=== PATIENT | male | born 1945 | race African-American/Black ===

== ENCOUNTER 2019-03-02 07:19 | Inpatient (IN) | payer MEDICARE ==
[~2019-03-02] VITALS: Ht 175.3 cm; Wt 59.1 kg
[2019-03-02 06:45] VITALS: BP 111/72
[2019-03-02] MEDS ORDERED: METHYL SALICYLATE/MENTHOL TOPICAL OINTMENT 29GM TUBE. TP PRN (07:30)
[2019-03-02] MEDS ORDERED: ACETAMINOPHEN 325 MG TABLET PO PRN (07:30)
[2019-03-02] MEDS ORDERED: MAG HYDROX/AL HYDROX/SIMETH 30 ML ORAL.SUSP PO PRN (07:30)
[2019-03-02] MEDS ORDERED: MAGNESIUM HYDROXIDE 2,400 MG/30 ML ORAL.SUSP. PO PRN (07:30)
[2019-03-02 08:13] LABS: BILIRUBIN,URINE NEG (NEG); CLARITY,URINE CLEAR; COLOR,URINE YELLOW; GLUCOSE,URINE NEG (NEG); UROBILINOGEN,URINE 0.2 mg/dL (0.2 mg/dL)
[2019-03-02 08:14] LABS: BACTERIA,URINE 0 /HPF (0-FEW); NITRITE,URINE NEG (NEG); RBC,URINE 0 /HPF (0-2); SQUAMOUS EPITHELIAL CELL,UR OCC /LPF; WBC,URINE RARE /HPF (0-4)
[2019-03-02] MEDS ORDERED: APIX5TAB3 PO (10:09)
[2019-03-02] MEDS ORDERED: ATOR20TA58 PO (10:13)
[2019-03-02] MEDS ORDERED: ASPI-612 PO (10:13)
[2019-03-02] MEDS ORDERED: CARB1TAB2 PO (10:13)
[2019-03-02] MEDS ORDERED: FUROSEMIDE 20 MG TABLET PO PRN (10:15)
[2019-03-02] MEDS ORDERED: MIDO10TA PO (10:39)
[2019-03-02] MEDS ORDERED: ENTA200T2 PO (10:39)
[2019-03-02] MEDS ORDERED: INSU100V13 SQ (10:39)
[2019-03-02] MEDS ORDERED: INSU100I17 SQ (10:39)
[2019-03-02] MEDS ORDERED: QUET25TA5 PO (10:39)
[2019-03-02] MEDS ORDERED: CYCL25CA9 PO (10:39)
[2019-03-02] MEDS ORDERED: FLUT50DI IH (10:39)
[2019-03-02] MEDS ORDERED: FURO20TA3 PO (10:39)
[2019-03-02] MEDS ORDERED: MYCO500T3 PO (10:39)
[2019-03-02] MEDS ORDERED: CARB1TAB48 PO (10:39)
[2019-03-02] MEDS ORDERED: ROPI3TAB4 PO (10:39)
[2019-03-02] MEDS ORDERED: OMEP20TA8 PO (10:39)
[2019-03-02] MEDS ORDERED: [UNRECOGNIZED DRUG - CODE] OU (10:39)
[2019-03-02] MEDS ORDERED: TUBE5VIA12 ID (10:39)
[2019-03-02] MEDS ORDERED: PRED2.5T PO (10:39)
[2019-03-02 12:29] VITALS: BP 102/66
[2019-03-02] MEDS: CARBIDOPA/LEVODOPA 25/100MG TABLET PO SCH ×3 (12:45→19:48)
[2019-03-02] MEDS: rOPINIRole 1 MG TABLET. PO SCH ×2 (12:45→19:27)
[2019-03-02] MEDS: MIDODRINE 5 MG TABLET PO SCH ×2 (12:46→17:27)
[2019-03-02] MEDS: HEPARIN for SUB-Q USE 5,000 UNIT/ML VIAL. SQ SCH ×2 (12:46→13:03)
[2019-03-02] MEDS: INSULIN LISPRO 300 UNITS/3 ML INSULN.PEN. SQ SCH ×2 (12:47→17:34)
[2019-03-02] MEDS: ENTACAPONE 200 MG TABLET PO SCH ×3 (13:00→19:28)
[2019-03-02 16:32] VITALS: BP 129/67
[2019-03-02] MEDS: [UNRECOGNIZED DRUG - OTHER] PO SCH (19:28)
[2019-03-02] MEDS: MYCOPHENOLATE MOFETIL 500 MG TABLET. PO SCH (19:29)
[2019-03-02] MEDS: QUEtiapine 25 MG TABLET. PO SCH (19:48)
[2019-03-02] MEDS: APIXABAN 5 MG TABLET. PO SCH (19:48)
[2019-03-02] MEDS: ATORVASTATIN CALCIUM 20 MG TABLET PO SCH (19:48)
--- NOTE | 2019-03-02 20:23 | RAD ---
RS Compliance Statement: One or more of the following individualized dose reduction techniques were utilized for this examination: 1. Automated exposure control 2. Adjustment of the mA and/or kV according to patient size 3. Use of iterative reconstruction technique CT head without contrast 03/02/2019 6:53 PM INDICATION: Recent altered mental status. Confusion and dizziness COMPARISON: None available TECHNIQUE: Multiple axial CT images of the head were obtained from skull base through the vertex without intravenous contrast. FINDINGS: Head: Ventricles, sulci and basal cisterns are prominent compatible with mild generalized cerebral volume loss. There is no hydrocephalus. Winn-white matter differentiation is normal. There is no acute intracranial hemorrhage. There is no mass, mass effect or midline shift. Posterior fossa is normal in appearance. Visualized portions of the orbits are normal. Paranasal sinuses are well aerated. Mastoid air cells are well aerated. Scalp and calvaria are normal. IMPRESSION: No acute intracranial hemorrhage. Mild generalized cerebral volume loss. Electronically signed by: Shazia Carvalho MD (03/02/2019 8:20 PM) [facility]
[2019-03-02] MEDS ORDERED: INSULIN GLARGINE 300 UNITS/3 ML INSULN.PEN. SQ SCH (21:00)
[2019-03-02] MEDS ORDERED: NON FORMULARY ITEM (Fluticasone Propionate (Flovent 50MCG Diskus) 50 MCG) IH SCH (21:00)
[2019-03-02] MEDS: BUDESONIDE 0.5 MG/2 ML NEBU NEB SCH (21:00)
[2019-03-02] MEDS: TETRAHYDROZOLINE 0.05% OPHTH SOLUTION 15ML BOTTLE. OU SCH (21:49)
--- NOTE | 2019-03-02 22:39 | PDOC ---
Exam Note: Ilir Note: Please also refer to the separate dictated note~for this date of service dictated separately. Discussed the patient with Nursing staff reviewed the chart.~Reviewed interim history and current functioning. Reviewed vital signs,~Labs/ Radiology~and current medications noted below. Continue current treatment with the changes noted in the dictated addendum note Assessment: Vital Signs/I&O: Vital Signs Date Time Temp Pulse Resp B/P (MAP) Pulse Ox O2 Delivery O2 Flow Rate FiO2 03/02/19 21:00 100 Room Air 03/02/19 17:27 85 129/67 03/02/19 16:32 98.6 20 Labs: Laboratory Tests Test 03/02/19 07:40 03/02/19 09:16 03/02/19 12:15 03/02/19 17:14 Urine Collection Type Clean catch Urine Color Yellow Urine Clarity Clear Urine pH 7.0 Urine Specific Pinson 1.015 Urine Protein Neg (NEG-TRACE) Urine Glucose (UA) Neg mg/dL (NEG) Urine Ketones (Stick) Neg mg/dL (NEG) Urine Blood Neg (NEG) Urine Nitrite Neg (NEG) Urine Bilirubin Neg (NEG) Urine Urobilinogen Dipstick 0.2 mg/dL (0.2 mg/dL) Urine Leukocyte Esterase Neg (NEG) Urine RBC 0 /HPF (0-2) Urine WBC Rare /HPF (0-4) Urine Squamous Epithelial Cells Occ /LPF Urine Bacteria 0 /HPF (0-FEW) Glucose (Fingerstick) 73 mg/dL (70-99) 128 mg/dL (70-99) H 231 mg/dL (70-99) H Test 03/02/19 19:32 Glucose (Fingerstick) 241 mg/dL (70-99) H Current Medications: Meds: Current Medications Medications (Trade) Dose Ordered Sig/Yana Route PRN Reason Start Time Stop Time Status Last Admin Dose Admin Atorvastatin Calcium (Lipitor) 20 mg QHS PO 03/02/19 21:00 03/02/19 19:48 Carbidopa/Levodopa (Sinemet 25/100) 1 tab QHS PO 03/02/19 21:00 03/02/19 19:48 Mycophenolate Mofetil (Cellcept) 500 mg BID PO 03/02/19 21:00 03/02/19 19:29 Apixaban (Eliquis) 5 mg BID PO 03/02/19 21:00 03/02/19 19:48 Carbidopa/Levodopa (Sinemet 25/100) 1 tab TIDWMEALS PO 03/02/19 12:00 03/02/19 17:27 Cyclosporine (Neoral) 75 mg BID PO 03/02/19 21:00 03/02/19 19:28 Entacapone (Comtan) 200 mg QID PO 03/02/19 13:00 03/02/19 19:28 Insulin Human Lispro (HumaLOG) 5 units TIDWMEALS SQ 03/02/19 12:00 03/02/19 17:34 Insulin Glargine (Lantus) 15 units QHS SQ 03/02/19 21:00 03/02/19 21:43 Midodrine (Proamatine) 10 mg [id number] PO 03/02/19 13:00 03/02/19 17:27 Tetrahydrozoline HCl (Murine) 1 drop BID OU 03/02/19 21:00 03/02/19 21:49 Quetiapine Fumarate (SEROquel) 25 mg QHS PO 03/02/19 21:00 03/02/19 19:48 Ropinirole HCl (Requip) 3 mg TID PO 03/02/19 14:00 03/02/19 19:27 Budesonide (Pulmicort) 0.5 mg QHS NEB 03/02/19 21:00 03/02/19 21:00 Olanzapine (ZyPREXA ZYDIS) 2.5 mg PRN Q2HR PRN PO PSYCHOSIS 03/02/19 15:30 03/02/19 15:44 I have reviewed the current psychotropics carefully including drug interactions. Risk benefit ratio favors no change other than as noted in my dictated progress note. Diagnosis: Problems: (1) Anxiety disorder (2) Dementia in Alzheimer's disease with delusions (3) Dementia in Alzheimer's disease with depression (4) Dementia, vascular, with delusions (5) Dementia, vascular, with depression (6) Impulse control disorder ROSEMARY ZUIRTA MD Mar 02, 2019 22:39
[2019-03-03 05:52] VITALS: BP 112/74
[2019-03-03] MEDS: MIDODRINE 5 MG TABLET PO SCH ×3 (06:02→17:03)
[2019-03-03 06:54] LABS: BASO % 1 % (0-3); EOS # 0.1 x10^3/uL (0.0-0.7); EOS % 2 % (0-3); HEMOGLOBIN 14.3 g/dL (13.0-17.5); LYMPH # 2.2 x10^3/uL (1.0-4.8); LYMPH % 53 % (24-48); MEAN CORPUSCULAR HEMOGLOBIN 34 pg (25-35); MEAN CORPUSCULAR HGB CONC 33 g/dL (31-37); MEAN CORPUSCULAR VOLUME 106 fL (79-100); MONO # 0.5 x10^3/uL (0.0-1.1); MONO % 13 % (0-9); NEUT # 1.3 x10^3uL (1.8-7.7); NEUT % 33 % (31-73); PLATELET COUNT 205 x10^3/uL (140-400); RED BLOOD COUNT 4.17 x10^6/uL (4.30-5.70); RED CELL DISTRIBUTION WIDTH 15.2 % (11.5-14.5); WHITE BLOOD COUNT 4.1 x10^3/uL (4.0-11.0)
[2019-03-03 07:12] LABS: ALBUMIN 3.7 g/dL (3.4-5.0); ALBUMIN/GLOBULIN RATIO 1.1 (1.0-1.7); CALCIUM 9.5 mg/dL (8.5-10.1); CREATININE 1.2 mg/dL (0.7-1.3); GFR 71.6; MAGNESIUM 1.8 mg/dL (1.8-2.4); TOTAL BILIRUBIN 1.1 mg/dL (0.2-1.0); TOTAL PROTEIN 7.2 g/dL (6.4-8.2)
[2019-03-03 07:45] LABS: BURR CELLS OCC; PLT ESTIMATE ADEQUATE (ADEQUATE)
[2019-03-03] MEDS: CARBIDOPA/LEVODOPA 25/100MG TABLET PO SCH ×4 (07:57→19:08)
[2019-03-03] MEDS: MYCOPHENOLATE MOFETIL 500 MG TABLET. PO SCH ×2 (07:58→19:10)
[2019-03-03] MEDS: [UNRECOGNIZED DRUG - OTHER] PO SCH ×2 (07:58→19:09)
[2019-03-03] MEDS: APIXABAN 5 MG TABLET. PO SCH ×2 (07:58→19:08)
[2019-03-03] MEDS: TETRAHYDROZOLINE 0.05% OPHTH SOLUTION 15ML BOTTLE. OU SCH ×2 (07:59→21:47)
[2019-03-03] MEDS: rOPINIRole 1 MG TABLET. PO SCH ×3 (07:59→19:08)
[2019-03-03] MEDS: ENTACAPONE 200 MG TABLET PO SCH ×4 (07:59→19:08)
[2019-03-03] MEDS: ASPIRIN ENTERIC COATED 81 MG TABLET.DR. PO SCH (08:01)
[2019-03-03] MEDS: PANTOPRAZOLE 40 MG TABLET. PO SCH (08:01)
[2019-03-03] MEDS: predniSONE 5 MG TABLET PO SCH (08:02)
[2019-03-03] MEDS: INSULIN LISPRO 300 UNITS/3 ML INSULN.PEN. SQ SCH ×3 (08:04→16:53)
[2019-03-03] MEDS ORDERED: TUBERCULIN PURIF PROT DERIV ID SCH (09:00)
[2019-03-03 12:51] LABS: THYROID STIM HORMONE (TSH) 7.36 uIU/mL (0.358-3.740)
[2019-03-03 15:54] VITALS: BP 125/82
[2019-03-03] MEDS: CHOLECALCIFEROL (VITAMIN D3) 50,000 UNIT CAPSULE PO SCH (17:21)
[2019-03-03] MEDS: QUEtiapine 25 MG TABLET. PO SCH (19:08)
[2019-03-03] MEDS: ATORVASTATIN CALCIUM 20 MG TABLET PO SCH (19:09)
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
[2019-03-03] MEDS ORDERED: INSULIN GLARGINE 300 UNITS/3 ML INSULN.PEN. SQ SCH (21:00)
[2019-03-03 21:10] LABS: THYROXINE 5.7 ug/dL (4.5-12.0)
--- NOTE | 2019-03-03 22:36 | PDOC ---
Exam Note: Ilir Note: Please also refer to the separate dictated note~for this date of service dictated separately.~Patient seen individually. Discussed the patient with Nursing staff reviewed the chart.~Reviewed interim history and current functioning. Reviewed vital signs,~Labs/ Radiology~and current medications noted below. Continue current treatment with the changes noted in the dictated addendum note Assessment: Vital Signs/I&O: Vital Signs Date Time Temp Pulse Resp B/P (MAP) Pulse Ox O2 Delivery O2 Flow Rate FiO2 03/03/19 17:03 85 125/82 03/03/19 15:54 97.6 17 96 03/02/19 21:00 Room Air I & O 03/02/19 03/02/19 03/03/19 14:59 22:59 06:59 Intake Total 720 ml 60 ml 120 ml Balance 720 ml 60 ml 120 ml Labs: Laboratory Tests Test 03/03/19 06:17 03/03/19 07:30 03/03/19 11:45 03/03/19 16:45 White Blood Count 4.1 x10^3/uL (4.0-11.0) Red Blood Count 4.17 x10^6/uL (4.30-5.70) L Hemoglobin 14.3 g/dL (13.0-17.5) Hematocrit 44.0 % (39.0-53.0) Mean Corpuscular Volume 106 fL (79-100) H Mean Corpuscular Hemoglobin 34 pg (25-35) Mean Corpuscular Hemoglobin Concent 33 g/dL (31-37) Red Cell Distribution Width 15.2 % (11.5-14.5) H Platelet Count 205 x10^3/uL (140-400) Neutrophils (%) (Auto) 33 % (31-73) Lymphocytes (%) (Auto) 53 % (24-48) H Monocytes (%) (Auto) 13 % (0-9) H Eosinophils (%) (Auto) 2 % (0-3) Basophils (%) (Auto) 1 % (0-3) Neutrophils # (Auto) 1.3 x10^3uL (1.8-7.7) L Lymphocytes # (Auto) 2.2 x10^3/uL (1.0-4.8) Monocytes # (Auto) 0.5 x10^3/uL (0.0-1.1) Eosinophils # (Auto) 0.1 x10^3/uL (0.0-0.7) Basophils # (Auto) 0.0 x10^3/uL (0.0-0.2) Platelet Estimate Adequate (ADEQUATE) Macrocytosis Present [place] Cells Occ Crenated Cell Present Sodium Level 141 mmol/L (136-145) Potassium Level 4.0 mmol/L (3.5-5.1) Chloride Level 104 mmol/L (98-107) Carbon Dioxide Level 30 mmol/L (21-32) Anion Gap 7 (6-14) Blood Urea Nitrogen 25 mg/dL (8-26) Creatinine 1.2 mg/dL (0.7-1.3) Estimated GFR (Cockcroft-Gault) 71.6 BUN/Creatinine Ratio 21 (6-20) H Glucose Level 238 mg/dL (70-99) H Calcium Level 9.5 mg/dL (8.5-10.1) Magnesium Level 1.8 mg/dL (1.8-2.4) Iron Level 50 ug/dL (65-175) L Total Iron Binding Capacity 232 ug/dL (250-450) L Iron Saturation 22 % (15-34) Total Bilirubin 1.1 mg/dL (0.2-1.0) H Aspartate Amino Transferase (AST) 20 U/L (15-37) Alanine Aminotransferase (ALT) 14 U/L (16-63) L Alkaline Phosphatase 110 U/L (46-116) Total Protein 7.2 g/dL (6.4-8.2) Albumin 3.7 g/dL (3.4-5.0) Albumin/Globulin Ratio 1.1 (1.0-1.7) Triglycerides Level 110 mg/dL (0-150) Cholesterol Level 179 mg/dL (0-200) LDL Cholesterol, Calculated 96 mg/dL (0-100) VLDL Cholesterol, Calculated 22 mg/dL (0-40) Non-HDL Cholesterol Calculated 118 mg/dL (0-129) HDL Cholesterol 61 mg/dL (40-60) H Cholesterol/HDL Ratio 2.0 25-Hydroxy Vitamin D Total 27.8 ng/mL (30-100) L Thyroid Stimulating Hormone (TSH) 7.360 uIU/mL (0.358-3.740) Thyroxine (T4) 5.7 ug/dL (4.5-12.0) Total Triiodothyronine (TT3) 106 ng/dL (71-180) Treponema pallidum Antibody Nonreactive (Nonreactive) Glucose (Fingerstick) 227 mg/dL (70-99) H 327 mg/dL (70-99) H 376 mg/dL (70-99) H Test 03/03/19 19:06 03/03/19 20:49 Glucose (Fingerstick) 369 mg/dL (70-99) H 303 mg/dL (70-99) H Current Medications: Meds: Current Medications Medications (Trade) Dose Ordered Sig/Yana Route PRN Reason Start Time Stop Time Status Last Admin Dose Admin Aspirin (Aspirin Enteric Coated) 81 mg DAILY PO 03/03/19 09:00 03/03/19 08:01 Pantoprazole Sodium (Protonix) 40 mg DAILY PO 03/03/19 09:00 03/03/19 08:01 Prednisone (Prednisone) 7.5 mg DAILY PO 03/03/19 09:00 03/03/19 08:02 Vitamin D (Vitamin D3) 50,000 unit WEEKLY PO 03/03/19 17:15 03/03/19 17:21 Insulin Glargine (Lantus) 18 units QHS SQ 03/03/19 21:00 03/03/19 19:27 I have reviewed the current psychotropics carefully including drug interactions. Risk benefit ratio favors no change other than as noted in my dictated progress note. Diagnosis: Problems: (1) Anxiety disorder (2) Dementia in Alzheimer's disease with delusions (3) Dementia in Alzheimer's disease with depression (4) Dementia, vascular, with delusions (5) Dementia, vascular, with depression (6) Impulse control disorder ROSEMARY ZURITA MD Mar 03, 2019 22:36
[2019-03-03] MEDS: BUDESONIDE 0.5 MG/2 ML NEBU NEB SCH (22:39)
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
[2019-03-04 01:10] LABS: HEMOGLOBIN A1C 7.8 % (4.8-5.6)
[2019-03-04 05:35] VITALS: BP 145/89
[2019-03-04] MEDS: MIDODRINE 5 MG TABLET PO SCH ×3 (06:00→17:22)
[2019-03-04] MEDS: ASPIRIN ENTERIC COATED 81 MG TABLET.DR. PO SCH (07:49)
[2019-03-04] MEDS: CARBIDOPA/LEVODOPA 25/100MG TABLET PO SCH ×4 (07:49→20:11)
[2019-03-04] MEDS: TETRAHYDROZOLINE 0.05% OPHTH SOLUTION 15ML BOTTLE. OU SCH ×2 (07:49→20:13)
[2019-03-04] MEDS: ENTACAPONE 200 MG TABLET PO SCH ×4 (07:50→20:14)
[2019-03-04] MEDS: APIXABAN 5 MG TABLET. PO SCH ×2 (07:50→20:11)
[2019-03-04] MEDS: MYCOPHENOLATE MOFETIL 500 MG TABLET. PO SCH ×2 (07:50→20:12)
[2019-03-04] MEDS: [UNRECOGNIZED DRUG - OTHER] PO SCH ×2 (07:51→20:12)
[2019-03-04] MEDS: predniSONE 5 MG TABLET PO SCH (07:52)
[2019-03-04] MEDS: PANTOPRAZOLE 40 MG TABLET. PO SCH (07:52)
[2019-03-04] MEDS: rOPINIRole 1 MG TABLET. PO SCH ×3 (07:53→20:12)
[2019-03-04] MEDS: INSULIN LISPRO 300 UNITS/3 ML INSULN.PEN. SQ SCH ×3 (07:54→17:36)
[2019-03-04] MEDS: SERTRALINE 25 MG TABLET. PO SCH (08:05)
[2019-03-04 15:54] VITALS: BP 116/76
[2019-03-04] MEDS: ATORVASTATIN CALCIUM 20 MG TABLET PO SCH (20:11)
[2019-03-04] MEDS: QUEtiapine 25 MG TABLET. PO SCH (20:12)
[2019-03-04 20:46] LABS: THYROXINE 5.5 ug/dL (4.5-12.0)
[2019-03-04] MEDS ORDERED: INSULIN GLARGINE 300 UNITS/3 ML INSULN.PEN. SQ SCH (21:00)
--- NOTE | 2019-03-04 21:18 | PN ---
DATE: 03/03/2019 PSYCHIATRIC PROGRESS NOTE This is a late entry 03/03/2019, covers the elements not covered in my initial note. SUBJECTIVE: I met with the patient in the evening. The patient slept 6-3/4 hours previous night. He states he slept "like a rock." He is compliant with his medications. Received Zyprexa the day before for anxiety and paranoia. Appetite is fair. REVIEW OF SYSTEMS: Ambulation impaired with walker. No CV, , pulmonary, eye, ENT system symptoms on review. He is pleasant, verbal, smiling as I met with him. MENTAL STATUS EXAM: Oriented to himself. Insight, judgment, recent and remote memory, attention, concentration, fund of knowledge poor, consistent with his diagnosis. IMPRESSION: Major neurocognitive disorder, Alzheimer, vascular with delusion, depression; anxiety disorder, unspecified; Parkinson's disease, status post heart transplant. PLAN: Start Zoloft 25 mg a day for his mood and anxiety symptoms. Maintain Seroquel 25 mg p.o. at bedtime. Rest unchanged for now. MAN Mallorie ZURITA MD DR: KOBY/candido JOB#: [id number] / [id number]
[2019-03-04] MEDS: BUDESONIDE 0.5 MG/2 ML NEBU NEB SCH (21:41)
--- NOTE | 2019-03-04 22:16 | PDOC ---
Exam Note: Ilir Note: Please also refer to the separate dictated note~for this date of service dictated separately.~Patient seen individually. Discussed the patient with Nursing staff reviewed the chart.~Reviewed interim history and current functioning. Reviewed vital signs,~Labs/ Radiology~and current medications noted below. Continue current treatment with the changes noted in the dictated addendum note Assessment: Vital Signs/I&O: Vital Signs Date Time Temp Pulse Resp B/P (MAP) Pulse Ox O2 Delivery O2 Flow Rate FiO2 03/04/19 21:41 99 Room Air 03/04/19 17:22 75 152/70 03/04/19 15:54 97.4 16 I & O 03/03/19 03/03/19 03/04/19 14:59 22:59 06:59 Intake Total 600 ml 720 ml Balance 600 ml 720 ml Labs: Laboratory Tests Test 03/04/19 07:14 03/04/19 07:18 03/04/19 11:50 03/04/19 16:44 Free Thyroxine 1.01 ng/dL (0.76-1.46) Thyroxine (T4) 5.5 ug/dL (4.5-12.0) Total Triiodothyronine (TT3) 110 ng/dL (71-180) Glucose (Fingerstick) 256 mg/dL (70-99) H 388 mg/dL (70-99) H 479 mg/dL (70-99) H Test 03/04/19 19:04 03/04/19 20:24 Glucose (Fingerstick) 476 mg/dL (70-99) H 461 mg/dL (70-99) H Current Medications: Meds: Current Medications Medications (Trade) Dose Ordered Sig/Yana Route PRN Reason Start Time Stop Time Status Last Admin Dose Admin Sertraline HCl (Zoloft) 25 mg DAILY PO 03/04/19 09:00 03/04/19 08:05 Insulin Human Lispro (HumaLOG) 7 units TIDWMEALS SQ 03/04/19 08:00 03/04/19 17:27 DC 03/04/19 12:05 Insulin Glargine (Lantus) 25 units QHS SQ 03/04/19 21:00 03/04/19 20:18 Insulin Human Lispro (HumaLOG) 10 units TIDWMEALS SQ 03/04/19 17:30 03/04/19 17:36 I have reviewed the current psychotropics carefully including drug interactions. Risk benefit ratio favors no change other than as noted in my dictated progress note. Diagnosis: Problems: (1) Anxiety disorder (2) Dementia in Alzheimer's disease with delusions (3) Dementia in Alzheimer's disease with depression (4) Dementia, vascular, with delusions (5) Dementia, vascular, with depression (6) Impulse control disorder ROSEMARY ZURITA MD Mar 04, 2019 22:16
[2019-03-05] MEDS: MIDODRINE 5 MG TABLET PO SCH ×3 (04:47→17:13)
[2019-03-05 06:34] VITALS: BP 122/69
[2019-03-05] MEDS: APIXABAN 5 MG TABLET. PO SCH ×2 (08:31→19:30)
[2019-03-05] MEDS: ASPIRIN ENTERIC COATED 81 MG TABLET.DR. PO SCH (08:31)
[2019-03-05] MEDS: rOPINIRole 1 MG TABLET. PO SCH ×3 (08:31→19:31)
[2019-03-05] MEDS: ENTACAPONE 200 MG TABLET PO SCH ×4 (08:31→19:31)
[2019-03-05] MEDS: predniSONE 5 MG TABLET PO SCH (08:32)
[2019-03-05] MEDS: PANTOPRAZOLE 40 MG TABLET. PO SCH (08:34)
[2019-03-05] MEDS: CARBIDOPA/LEVODOPA 25/100MG TABLET PO SCH ×4 (08:34→19:31)
[2019-03-05] MEDS: TETRAHYDROZOLINE 0.05% OPHTH SOLUTION 15ML BOTTLE. OU SCH ×2 (08:34→19:31)
[2019-03-05] MEDS: SERTRALINE 25 MG TABLET. PO SCH (08:34)
[2019-03-05] MEDS: INSULIN LISPRO 300 UNITS/3 ML INSULN.PEN. SQ SCH ×3 (08:35→17:16)
[2019-03-05] MEDS: MYCOPHENOLATE MOFETIL 500 MG TABLET. PO SCH ×2 (08:38→19:31)
[2019-03-05] MEDS: [UNRECOGNIZED DRUG - OTHER] PO SCH ×2 (08:38→19:31)
[2019-03-05 12:32] VITALS: BP 101/63
[2019-03-05 15:39] VITALS: BP 109/71
[2019-03-05] MEDS: ATORVASTATIN CALCIUM 20 MG TABLET PO SCH (19:30)
[2019-03-05] MEDS: QUEtiapine 25 MG TABLET. PO SCH (19:31)
[2019-03-05] MEDS: INSULIN GLARGINE 300 UNITS/3 ML INSULN.PEN. SQ SCH (19:48)
[2019-03-05] MEDS: BUDESONIDE 0.5 MG/2 ML NEBU NEB SCH (21:08)
--- NOTE | 2019-03-05 22:23 | PDOC ---
Exam Note: Ilir Note: Please also refer to the separate dictated note~for this date of service dictated separately.~Patient seen individually. Discussed the patient with Nursing staff reviewed the chart.~Reviewed interim history and current functioning. Reviewed vital signs,~Labs/ Radiology~and current medications noted below. Continue current treatment with the changes noted in the dictated addendum note Assessment: Vital Signs/I&O: Vital Signs Date Time Temp Pulse Resp B/P (MAP) Pulse Ox O2 Delivery O2 Flow Rate FiO2 03/05/19 21:10 98 Room Air 03/05/19 17:13 71 109/71 03/05/19 15:39 98.8 16 I & O 03/04/19 03/04/19 03/05/19 15:00 23:00 07:00 Intake Total 720 ml 480 ml 240 ml Balance 720 ml 480 ml 240 ml Labs: Laboratory Tests Test 03/05/19 07:25 03/05/19 11:53 03/05/19 17:01 03/05/19 19:38 Glucose (Fingerstick) 363 mg/dL (70-99) H 367 mg/dL (70-99) H 325 mg/dL (70-99) H 148 mg/dL (70-99) H Current Medications: Meds: Current Medications Medications (Trade) Dose Ordered Sig/Yana Route PRN Reason Start Time Stop Time Status Last Admin Dose Admin Insulin Glargine (Lantus) 40 units QHS SQ 03/05/19 21:00 03/05/19 19:48 I have reviewed the current psychotropics carefully including drug interactions. Risk benefit ratio favors no change other than as noted in my dictated progress note. Diagnosis: Problems: (1) Anxiety disorder (2) Dementia in Alzheimer's disease with delusions (3) Dementia in Alzheimer's disease with depression (4) Dementia, vascular, with delusions (5) Dementia, vascular, with depression (6) Impulse control disorder ROSEMARY ZURITA MD Mar 05, 2019 22:23
--- NOTE | 2019-03-05 23:11 | CONS ---
DATE OF CONSULTATION: 03/03/2019 REFERRING PHYSICIAN: Dr. Dai. REASON FOR CONSULTATION: Increased tremor of the arms. HISTORY OF PRESENT ILLNESS: This is a 73-year-old right-handed male who was admitted on 03/02/2019, on account of increasing symptoms of aggressive behavior and agitation to the resident at [facility]. Neuro consult was requested because of the patient has been having worsening of his upper extremities tremor. The patient has had Parkinson's disease for several years. He has been seen by neurologist at [facility] and treated with medications. He stated his tremor has been intermittent, but at the time of evaluation, the patient denies any worsening of his tremor, rigidity, or any recent falls. Initially, he was evaluated in the Emergency Room at [facility] before transferring him to our geropsychiatric care. The patient is and his lives at home and in late stage of hospice care. Currently, the patient denies headaches, visual disturbances, nausea, vomiting, chest pain, shortness of breath or palpitation, dysarthria or dysphagia. PAST MEDICAL HISTORY: Significant for chronic obstructive sleep apnea, hypertension, hyperlipidemia, Parkinson disease, chronic kidney disease, history of DVT and pulmonary embolism, coronary artery disease, cirrhosis of the liver and prostate cancer. PAST SURGICAL HISTORY: Significant for heart transplant in 1999, prostatectomy in 2008 for prostate cancer and status post pacemaker placement in 2015. SOCIAL HISTORY: The patient lives with his , the patient is . He denies smoking, alcohol drinking, or illicit drug use. ALLERGIES: RIVASTIGMINE. CURRENT HOME MEDICATIONS: Midodrine 10 mg daily, Apixaban 5 mg twice daily, Lipitor 20 mg night at bedtime, aspirin 81 mg daily, Seroquel 25 mg at bedtime, entacapone 200 mg 4 times daily, carbidopa/levodopa t.i.d. and 1 tablet at bedtime, Requip 3 mg t.i.d., Lasix 20 mg daily, Flovent 50 mcg Diskus one inhalation time, phentermine one drop of eye drops both eyes, proton pump inhibitor, omeprazole 20 mg daily, prednisone 7.5 mg daily for adrenal insufficiency, NovoLog insulin 5 units before meals, Levemir insulin 15 units at bedtime. Cyclosporine 75 mg twice daily. FAMILY HISTORY: Noncontributory. PHYSICAL EXAMINATION: GENERAL: Well-developed, well-nourished male, not in acute distress. VITAL SIGNS: He weighs 69 pounds. Blood pressure 125/82, respiratory rate 17, pulse is 85, temperature 97.6, oxygen saturation 96% on room air. HEENT: Normocephalic, atraumatic, otherwise unremarkable. NECK: Supple. Negative for carotid bruit, lymphadenopathy or thyromegaly. LUNGS: Clear to A and P. CARDIOVASCULAR: Regular rate and rhythm, normal S1, S2. There is no S3, S4 or murmur. ABDOMEN: Soft. Bowel sounds positive. EXTREMITIES: Negative for cyanosis, clubbing or pitting edema. NEUROLOGIC: The patient is alert and oriented x 3. Speech is fluent. There is no language dysfunction. The patient recalls 2/3 immediately and 1/3 after 1 and 3 minutes. Judgment and abstracting thinking are normal. The patient denies hallucination or delusion. CRANIAL NERVES: Visual morgan are full. The pupils are reactive to light and accommodation. The extraocular movements are intact. There is no nystagmus. There is no facial motor or sensory deficit. Hearing is intact bilaterally. The palate is elevated symmetrically. Sternocleidomastoid muscles are powerful bilaterally. The patient shrugs his shoulders symmetrically, protrudes his tongue in the midline without fasciculation or atrophy. MOTOR: No focal muscle bulk was seen. The tone is normal. The strength is 5/5 throughout. The patient does not have resting tremor, kinetic or postural tremor at this time. Sensory examination revealed normal pinprick, light touch, vibratory and position senses. Deep tendon reflexes were symmetric and hypoactive with absent Achilles responses. Gait: The patient has normal postural gait. Normal rapid alternating movements and rapid repetitive movements. DIAGNOSTIC DATA: Head CT scan performed on 03/02/2019 revealed no acute intracranial process, but mild generalized atrophy consistent with his age. LABORATORY DATA: CBC revealed white blood cells of 4.1, hemoglobin 14.3, hematocrit 44, platelet count 205,000. Chemistry revealed sodium of 141, potassium 4, chloride 104, CO2 of 30, BUN 25, creatinine 1.2, glucose 238. Hemoglobin A1c as high as 7.8. Iron is moderately low at 50 with low TIBC, liver enzymes normal except for low ALT. Lipid profile is normal with HDL at 61. Moderately low vitamin D at 27.8 with normal TSH and T4. Urinalysis negative for urinary tract infections. IMPRESSION: 1. Longstanding history of Parkinson's disease -- stable. 2. Multiple medical problems include diabetes mellitus, hypertension, hyperlipidemia, chronic kidney disease, coronary artery disease and cirrhosis of the liver. RECOMMENDATIONS: 1. We will continue with current medication for Parkinson's disease including carbidopa/levodopa and entacapone. 2. Continue with current medical and psychiatric care. M Wade KING MD DR: ADOLFO/candido JOB#: [id number] / [id number]
--- NOTE | 2019-03-06 01:08 | PN ---
DATE: 03/04/2019 PSYCHIATRIC PROGRESS NOTE This late entry 03/04/2019 covers elements not covered in my initial note. SUBJECTIVE: I met with the patient on the evening of 03/04/2019. Overall, the patient has been calm, compliant with his medications, had a better day. He is more redirectable. REVIEW OF SYSTEMS: Ambulation impaired at times with a walker. No CV, , pulmonary, eye, ENT system symptoms on review. MENTAL STATUS EXAM: Oriented to himself and situation. Speech is coherent, has some latency. Abstraction fair, computation impaired, language function intact, attention span short. Mood and affect is improved. LABORATORY DATA: Reviewed. IMPRESSION: Unchanged from initial note. PLAN: No change from initial note. MAN Mallorie ZURITA MD DR: KOBY/candido JOB#: [id number] / [id number]
[2019-03-06] MEDS: MIDODRINE 5 MG TABLET PO SCH ×3 (05:25→18:26)
[2019-03-06 06:20] VITALS: BP 133/78
[2019-03-06] MEDS: INSULIN LISPRO 300 UNITS/3 ML INSULN.PEN. SQ SCH ×3 (07:32→18:17)
[2019-03-06] MEDS: predniSONE 5 MG TABLET PO SCH (07:33)
[2019-03-06] MEDS: PANTOPRAZOLE 40 MG TABLET. PO SCH (07:33)
[2019-03-06] MEDS: APIXABAN 5 MG TABLET. PO SCH ×2 (07:33→20:24)
[2019-03-06] MEDS: ASPIRIN ENTERIC COATED 81 MG TABLET.DR. PO SCH (07:34)
[2019-03-06] MEDS: SERTRALINE 25 MG TABLET. PO SCH (07:35)
[2019-03-06] MEDS: CARBIDOPA/LEVODOPA 25/100MG TABLET PO SCH ×4 (07:35→20:25)
[2019-03-06] MEDS: TETRAHYDROZOLINE 0.05% OPHTH SOLUTION 15ML BOTTLE. OU SCH ×2 (07:37→20:24)
[2019-03-06] MEDS: ENTACAPONE 200 MG TABLET PO SCH ×4 (07:37→20:24)
[2019-03-06] MEDS: rOPINIRole 1 MG TABLET. PO SCH ×3 (07:37→20:25)
[2019-03-06] MEDS: [UNRECOGNIZED DRUG - OTHER] PO SCH ×2 (07:38→20:25)
[2019-03-06] MEDS: MYCOPHENOLATE MOFETIL 500 MG TABLET. PO SCH ×2 (07:38→20:24)
[2019-03-06 16:20] VITALS: BP 122/78
[2019-03-06] MEDS: BUDESONIDE 0.5 MG/2 ML NEBU NEB SCH (19:50)
[2019-03-06] MEDS: QUEtiapine 25 MG TABLET. PO SCH (20:25)
[2019-03-06] MEDS: ATORVASTATIN CALCIUM 20 MG TABLET PO SCH (20:25)
[2019-03-06] MEDS: INSULIN GLARGINE 300 UNITS/3 ML INSULN.PEN. SQ SCH (20:27)
[2019-03-07] MEDS: MIDODRINE 5 MG TABLET PO SCH ×3 (06:15→17:23)
[2019-03-07 06:26] VITALS: BP 89/57
[2019-03-07] MEDS: INSULIN LISPRO 300 UNITS/3 ML INSULN.PEN. SQ SCH ×3 (08:01→18:19)
[2019-03-07] MEDS: PANTOPRAZOLE 40 MG TABLET. PO SCH (09:32)
[2019-03-07] MEDS: ASPIRIN ENTERIC COATED 81 MG TABLET.DR. PO SCH (09:32)
[2019-03-07] MEDS: predniSONE 5 MG TABLET PO SCH (09:32)
[2019-03-07] MEDS: SERTRALINE 25 MG TABLET. PO SCH (09:32)
[2019-03-07] MEDS: ENTACAPONE 200 MG TABLET PO SCH ×4 (09:32→20:15)
[2019-03-07] MEDS: MYCOPHENOLATE MOFETIL 500 MG TABLET. PO SCH ×2 (09:32→20:14)
[2019-03-07] MEDS: [UNRECOGNIZED DRUG - OTHER] PO SCH ×2 (09:32→20:15)
[2019-03-07] MEDS: APIXABAN 5 MG TABLET. PO SCH ×2 (09:33→20:15)
[2019-03-07] MEDS: TETRAHYDROZOLINE 0.05% OPHTH SOLUTION 15ML BOTTLE. OU SCH ×2 (09:33→20:15)
[2019-03-07] MEDS: rOPINIRole 1 MG TABLET. PO SCH ×3 (09:33→20:15)
[2019-03-07] MEDS: CARBIDOPA/LEVODOPA 25/100MG TABLET PO SCH ×4 (09:33→20:15)
--- NOTE | 2019-03-07 10:29 | PDOC ---
Exam Note: Ilir Note: Late entry for DOS 03/06/2019. Please also refer to the separate dictated note~for this date of service dictated separately.~Patient seen individually. Discussed the patient with Nursing staff reviewed the chart.~Reviewed interim history and current functioning. Reviewed vital signs,~Labs/ Radiology~and current medications noted below. Continue current treatment with the changes noted in the dictated addendum note Assessment: Vital Signs/I&O: Vital Signs Date Time Temp Pulse Resp B/P (MAP) Pulse Ox O2 Delivery O2 Flow Rate FiO2 03/07/19 06:26 98.5 82 18 89/57 (68) 100 Room Air I & O 03/06/19 03/06/19 03/07/19 14:59 22:59 06:59 Intake Total 480 ml 240 ml 120 ml Balance 480 ml 240 ml 120 ml Labs: Laboratory Tests Test 03/06/19 11:57 03/06/19 16:59 03/06/19 19:15 03/07/19 07:44 Glucose (Fingerstick) 247 mg/dL (70-99) H 120 mg/dL (70-99) H 231 mg/dL (70-99) H 39 mg/dL (70-99) *L Test 03/07/19 08:20 Glucose (Fingerstick) 147 mg/dL (70-99) H Current Medications: I have reviewed the current psychotropics carefully including drug interactions. Risk benefit ratio favors no change other than as noted in my dictated progress note. Diagnosis: Problems: (1) Anxiety disorder (2) Dementia in Alzheimer's disease with delusions (3) Dementia in Alzheimer's disease with depression (4) Dementia, vascular, with delusions (5) Dementia, vascular, with depression (6) Impulse control disorder ROSEMARY ZURITA MD Mar 07, 2019 10:28
--- NOTE | 2019-03-07 12:52 | PN ---
DATE: 03/05/2019 PSYCHIATRIC PROGRESS NOTE This late entry 03/05/2019, covers elements not covered in my initial note. SUBJECTIVE: I met with the patient in the evening of 03/05/2019. The patient slept 6 hours previous night, had a nap after lunch. His 2 daughters visited and has a very supportive family. He has not been aggressive. Dr. Davison is addressing his insulin. He did attend groups. REVIEW OF SYSTEMS: No CV, , pulmonary, eye, ENT system symptoms on review. MENTAL STATUS EXAM: Oriented to himself and situation. Insight, judgment, recent memory is impaired, remote is better. Language function intact. Attention span short. Mood and affect is improved, less anxious, depressed. LABORATORY DATA: Reviewed. IMPRESSION: Unchanged from initial note. PLAN: No change from initial note. MAN Mallorie ZURITA MD DR: KOBY/canddio JOB#: [id number] / [id number]
[2019-03-07] MEDS: ATORVASTATIN CALCIUM 20 MG TABLET PO SCH (20:15)
[2019-03-07] MEDS: QUEtiapine 25 MG TABLET. PO SCH (20:15)
[2019-03-07] MEDS: INSULIN GLARGINE 300 UNITS/3 ML INSULN.PEN. SQ SCH (20:18)
[2019-03-07] MEDS: BUDESONIDE 0.5 MG/2 ML NEBU NEB SCH (20:30)
[2019-03-07 21:00] VITALS: BP 102/68
--- NOTE | 2019-03-07 21:45 | PN ---
DATE: 03/05/2019 SUBJECTIVE: The patient denies any new medical or neurological complaints. He denies any fall or tremor or rigidity. OBJECTIVE: GENERAL: Well-developed, well-nourished male, not in acute distress. VITAL SIGNS: Blood pressure 109/71, respiratory rate 16, pulse is 71 regular, temperature 98.8, oxygen saturation 100% on room air. HEENT: Normocephalic, atraumatic, otherwise unremarkable. NECK: Supple. Negative for carotid bruit, lymphadenopathy or thyromegaly. LUNGS: Clear to A and P. CARDIOVASCULAR: Regular rhythm, normal S1, S2. There is no S3, S4, or murmur. ABDOMEN: Soft. Bowel sounds positive. EXTREMITIES: Negative for cyanosis, clubbing or pitting edema. NEUROLOGICAL EXAM: Mental Status: The patient is alert and oriented x 3. Speech is fluent. There is no language dysfunction. The patient recalled 2/3 immediately and 1/3 after 1 and 3 minutes. Judgment and abstract thinking are fair. The patient denies hallucination or delusion. Cranial nerves are intact. Motor Examination: No focal muscle bulk was seen. The tone is normal. The strength is 5/5 throughout. Sensory examination revealed normal pinprick and light touch senses throughout. Deep tendon reflexes were symmetric and hypoactive with absent Achilles responses. Gait: The patient has a normal stance. He uses a walker for ambulation. IMPRESSION: 1. Long-standing history of Parkinson's disease, stable on current medications. 2. Multiple medical problems include diabetes mellitus, hypertension, hyperlipidemia, chronic kidney disease, coronary artery disease and cirrhosis of the liver. 3. Multiple psychiatric problems including early dementia, depression, anxiety. RECOMMENDATIONS: 1. Continue with current management for Parkinson disease with carbidopa/levodopa and entacapone. 2. Continue with current medical and psychiatric care. M Wade KING MD DR: ADOLFO/candido JOB#: [id number] / [id number]
--- NOTE | 2019-03-07 22:25 | PDOC ---
Exam Note: Ilir Note: Please also refer to the separate dictated note~for this date of service dictated separately.~Patient seen individually. Discussed the patient with Nursing staff reviewed the chart.~Reviewed interim history and current functioning. Reviewed vital signs,~Labs/ Radiology~and current medications noted below. Continue current treatment with the changes noted in the dictated addendum note Assessment: Vital Signs/I&O: Vital Signs Date Time Temp Pulse Resp B/P (MAP) Pulse Ox O2 Delivery O2 Flow Rate FiO2 03/07/19 20:32 97 Room Air 03/07/19 17:23 80 102/68 03/07/19 06:26 98.5 18 I & O 03/06/19 03/06/19 03/07/19 14:59 22:59 06:59 Intake Total 480 ml 240 ml 120 ml Balance 480 ml 240 ml 120 ml Labs: Laboratory Tests Test 03/07/19 07:44 03/07/19 08:20 03/07/19 11:48 03/07/19 16:34 Glucose (Fingerstick) 39 mg/dL (70-99) *L 147 mg/dL (70-99) H 304 mg/dL (70-99) H 195 mg/dL (70-99) H Test 03/07/19 19:06 Glucose (Fingerstick) 178 mg/dL (70-99) H Current Medications: Meds: Current Medications Medications (Trade) Dose Ordered Sig/Yana Route PRN Reason Start Time Stop Time Status Last Admin Dose Admin Insulin Glargine (Lantus) 30 units QHS SQ 03/07/19 21:00 03/07/19 20:18 I have reviewed the current psychotropics carefully including drug interactions. Risk benefit ratio favors no change other than as noted in my dictated progress note. Diagnosis: Problems: (1) Anxiety disorder (2) Dementia in Alzheimer's disease with delusions (3) Dementia in Alzheimer's disease with depression (4) Dementia, vascular, with delusions (5) Dementia, vascular, with depression (6) Impulse control disorder ROSEMARY ZURITA MD Mar 07, 2019 22:25
[2019-03-08 06:02] VITALS: BP 121/79
[2019-03-08] MEDS: INSULIN LISPRO 300 UNITS/3 ML INSULN.PEN. SQ SCH ×3 (07:52→18:36)
[2019-03-08] MEDS: rOPINIRole 1 MG TABLET. PO SCH ×3 (09:15→20:48)
[2019-03-08] MEDS: predniSONE 5 MG TABLET PO SCH (09:15)
[2019-03-08] MEDS: MYCOPHENOLATE MOFETIL 500 MG TABLET. PO SCH ×2 (09:15→20:47)
[2019-03-08] MEDS: APIXABAN 5 MG TABLET. PO SCH ×2 (09:16→20:48)
[2019-03-08] MEDS: CARBIDOPA/LEVODOPA 25/100MG TABLET PO SCH ×4 (09:17→20:48)
[2019-03-08] MEDS: MIDODRINE 5 MG TABLET PO SCH ×3 (09:17→18:35)
[2019-03-08] MEDS: SERTRALINE 25 MG TABLET. PO SCH (09:17)
[2019-03-08] MEDS: [UNRECOGNIZED DRUG - OTHER] PO SCH ×2 (09:17→20:48)
[2019-03-08] MEDS: ENTACAPONE 200 MG TABLET PO SCH ×4 (09:17→20:47)
[2019-03-08] MEDS: PANTOPRAZOLE 40 MG TABLET. PO SCH (09:17)
[2019-03-08] MEDS: TETRAHYDROZOLINE 0.05% OPHTH SOLUTION 15ML BOTTLE. OU SCH ×2 (09:17→20:48)
[2019-03-08] MEDS: ASPIRIN ENTERIC COATED 81 MG TABLET.DR. PO SCH (09:17)
--- NOTE | 2019-03-08 11:17 | PN ---
DATE: 03/06/2019 PSYCHIATRIC PROGRESS NOTE This late entry 03/06/2019 covers the elements not covered in my initial note. SUBJECTIVE: I met with the patient in the evening of 03/06/2019 and staffed at a treatment team meeting with the entire team in the morning of 03/06/2019 and the patient's daughter, Krista, attended the treatment team meeting. I reviewed the patient's history at length, his diagnosis. Krista's plans to have the patient home with her where she will be taking care of both parents until she can. The patient is sleeping 6-7 hours, somewhat isolated, confused. Appetite is 75%-100%. REVIEW OF SYSTEMS: No CV, , pulmonary, eye, ENT system symptoms on review. Reliability poor. MENTAL STATUS EXAM: Oriented to himself. Insight, judgment, recent and remote memory, attention, concentration, fund of knowledge poor consistent with his diagnosis. IMPRESSION: Major neurocognitive disorder, Alzheimer, vascular with delusion, depression, behavioral disturbance, rule out Lewy body dementia. Rest unchanged. PLAN: Increase Zoloft from 25 mg a day to 50 mg a day. Maintain rest of the psychotropics unchanged. Adjust further as clinically indicated. MAN Mallorie ZURITA MD DR: KOBY/candido JOB#: [id number] / [id number]
[2019-03-08 15:43] VITALS: BP 95/63
[2019-03-08] MEDS: BUDESONIDE 0.5 MG/2 ML NEBU NEB SCH (20:41)
[2019-03-08] MEDS: ATORVASTATIN CALCIUM 20 MG TABLET PO SCH (20:48)
[2019-03-08] MEDS: QUEtiapine 25 MG TABLET. PO SCH (20:48)
[2019-03-08] MEDS: INSULIN GLARGINE 300 UNITS/3 ML INSULN.PEN. SQ SCH (20:49)
--- NOTE | 2019-03-08 22:51 | PDOC ---
Exam Note: Ilir Note: Please also refer to the separate dictated note~for this date of service dictated separately.~Patient seen individually. Discussed the patient with Nursing staff reviewed the chart.~Reviewed interim history and current functioning. Reviewed vital signs,~Labs/ Radiology~and current medications noted below. Continue current treatment with the changes noted in the dictated addendum note Assessment: Vital Signs/I&O: Vital Signs Date Time Temp Pulse Resp B/P (MAP) Pulse Ox O2 Delivery O2 Flow Rate FiO2 03/08/19 20:43 96 Room Air 03/08/19 18:35 90 95/63 03/08/19 15:43 98.3 17 I & O 03/07/19 03/07/19 03/08/19 14:59 22:59 06:59 Intake Total 720 ml 600 ml Balance 720 ml 600 ml Labs: Laboratory Tests Test 03/08/19 07:12 03/08/19 11:08 03/08/19 16:00 03/08/19 19:09 Glucose (Fingerstick) 67 mg/dL (70-99) L 271 mg/dL (70-99) H 161 mg/dL (70-99) H 301 mg/dL (70-99) H Current Medications: I have reviewed the current psychotropics carefully including drug interactions. Risk benefit ratio favors no change other than as noted in my dictated progress note. Diagnosis: Problems: (1) Anxiety disorder (2) Dementia in Alzheimer's disease with delusions (3) Dementia in Alzheimer's disease with depression (4) Dementia, vascular, with delusions (5) Dementia, vascular, with depression (6) Impulse control disorder ROSEMARY ZURITA MD Mar 08, 2019 22:51
[2019-03-09 05:58] VITALS: BP 105/60
[2019-03-09] MEDS: MIDODRINE 5 MG TABLET PO SCH ×3 (07:00→17:50)
[2019-03-09] MEDS: ASPIRIN ENTERIC COATED 81 MG TABLET.DR. PO SCH (08:42)
[2019-03-09] MEDS: [UNRECOGNIZED DRUG - OTHER] PO SCH ×2 (08:42→20:08)
[2019-03-09] MEDS: ENTACAPONE 200 MG TABLET PO SCH ×4 (08:42→20:08)
[2019-03-09] MEDS: SERTRALINE 25 MG TABLET. PO SCH (08:42)
[2019-03-09] MEDS: CARBIDOPA/LEVODOPA 25/100MG TABLET PO SCH ×4 (08:42→20:05)
[2019-03-09] MEDS: TETRAHYDROZOLINE 0.05% OPHTH SOLUTION 15ML BOTTLE. OU SCH ×2 (08:42→20:05)
[2019-03-09] MEDS: predniSONE 5 MG TABLET PO SCH (08:43)
[2019-03-09] MEDS: APIXABAN 5 MG TABLET. PO SCH ×2 (08:43→20:05)
[2019-03-09] MEDS: rOPINIRole 1 MG TABLET. PO SCH ×3 (08:43→20:08)
[2019-03-09] MEDS: MYCOPHENOLATE MOFETIL 500 MG TABLET. PO SCH ×2 (08:43→20:08)
[2019-03-09] MEDS: PANTOPRAZOLE 40 MG TABLET. PO SCH (08:43)
[2019-03-09] MEDS: INSULIN LISPRO 300 UNITS/3 ML INSULN.PEN. SQ SCH ×3 (08:50→17:20)
[2019-03-09] MEDS ORDERED: FLUT9.9S NS (10:10)
[2019-03-09 16:06] VITALS: BP 111/74
[2019-03-09] MEDS: ATORVASTATIN CALCIUM 20 MG TABLET PO SCH (20:05)
[2019-03-09] MEDS: QUEtiapine 25 MG TABLET. PO SCH (20:05)
[2019-03-09] MEDS: FLUTICASONE 50MCG/NASAL SPRAY 16GM BOTTLE. NS SCH (20:08)
[2019-03-09] MEDS: INSULIN GLARGINE 300 UNITS/3 ML INSULN.PEN. SQ SCH (20:11)
--- NOTE | 2019-03-09 22:19 | PN ---
DATE: 03/07/2019 PSYCHIATRIC PROGRESS NOTE This late entry 03/07/2019 covers elements not covered in my initial note. SUBJECTIVE: I met with the patient in the evening of 03/07/2019. The patient slept reasonably previous night. Blood sugar was low at 39 in the morning, Lantus reduced per Dr. Hermosillo. His daughter visited at lunchtime and he seems to enjoy this. The nursing staff have questioned him on his blue eyes. He states his father was [place]. REVIEW OF SYSTEMS: Ambulation impaired with walker. No CV, , pulmonary, eye, ENT system symptoms on review. MENTAL STATUS EXAM: Oriented to himself and situation. Speech is coherent, has some latency. Abstraction fair, computation impaired, language function intact, attention span short. Short-term memory is impaired. Mood and affect is improved. LABORATORY DATA: Reviewed. IMPRESSION: Unchanged from initial note. PLAN: No change from initial note. MAN Mallorie ZURITA MD DR: KOBY/candido JOB#: [id number] / [id number]
--- NOTE | 2019-03-09 22:22 | PDOC ---
Exam Note: Ilir Note: Please also refer to the separate dictated note~for this date of service dictated separately.~Patient seen individually. Discussed the patient with Nursing staff reviewed the chart.~Reviewed interim history and current functioning. Reviewed vital signs,~Labs/ Radiology~and current medications noted below. Continue current treatment with the changes noted in the dictated addendum note Assessment: Vital Signs/I&O: Vital Signs Date Time Temp Pulse Resp B/P (MAP) Pulse Ox O2 Delivery O2 Flow Rate FiO2 03/09/19 17:50 82 111/74 03/09/19 16:06 97.5 16 95 03/09/19 05:58 Room Air I & O 03/08/19 03/08/19 03/09/19 14:59 22:59 06:59 Intake Total 720 ml 240 ml 240 ml Balance 720 ml 240 ml 240 ml Labs: Laboratory Tests Test 03/09/19 07:05 03/09/19 11:44 03/09/19 17:09 03/09/19 19:15 Glucose (Fingerstick) 113 mg/dL (70-99) H 157 mg/dL (70-99) H 111 mg/dL (70-99) H 53 mg/dL (70-99) L Test 03/09/19 19:52 03/09/19 21:22 Glucose (Fingerstick) 52 mg/dL (70-99) L 75 mg/dL (70-99) Current Medications: Meds: Current Medications Medications (Trade) Dose Ordered Sig/Yana Route PRN Reason Start Time Stop Time Status Last Admin Dose Admin Fluticasone Propionate (Flonase) 2 spray QHS NS 03/09/19 21:00 03/09/19 20:08 I have reviewed the current psychotropics carefully including drug interactions. Risk benefit ratio favors no change other than as noted in my dictated progress note. Diagnosis: Problems: (1) Anxiety disorder (2) Dementia in Alzheimer's disease with delusions (3) Dementia in Alzheimer's disease with depression (4) Dementia, vascular, with delusions (5) Dementia, vascular, with depression (6) Impulse control disorder ROSEMARY ZURITA MD Mar 09, 2019 22:22
[2019-03-10 06:14] VITALS: BP 124/76
[2019-03-10] MEDS: MIDODRINE 5 MG TABLET PO SCH ×3 (06:20→17:25)
[2019-03-10] MEDS: rOPINIRole 1 MG TABLET. PO SCH ×3 (08:47→21:21)
[2019-03-10] MEDS: MYCOPHENOLATE MOFETIL 500 MG TABLET. PO SCH ×2 (08:47→21:21)
[2019-03-10] MEDS: [UNRECOGNIZED DRUG - OTHER] PO SCH ×2 (08:47→21:18)
[2019-03-10] MEDS: ASPIRIN ENTERIC COATED 81 MG TABLET.DR. PO SCH (08:47)
[2019-03-10] MEDS: PANTOPRAZOLE 40 MG TABLET. PO SCH (08:47)
[2019-03-10] MEDS: APIXABAN 5 MG TABLET. PO SCH ×2 (08:47→21:22)
[2019-03-10] MEDS: CARBIDOPA/LEVODOPA 25/100MG TABLET PO SCH ×4 (08:48→21:21)
[2019-03-10] MEDS: ENTACAPONE 200 MG TABLET PO SCH ×4 (08:48→21:21)
[2019-03-10] MEDS: predniSONE 5 MG TABLET PO SCH (08:48)
[2019-03-10] MEDS: SERTRALINE 25 MG TABLET. PO SCH (08:48)
[2019-03-10] MEDS: CHOLECALCIFEROL (VITAMIN D3) 50,000 UNIT CAPSULE PO SCH (09:17)
[2019-03-10] MEDS: TETRAHYDROZOLINE 0.05% OPHTH SOLUTION 15ML BOTTLE. OU SCH ×2 (09:17→21:27)
[2019-03-10] MEDS: INSULIN LISPRO 300 UNITS/3 ML INSULN.PEN. SQ SCH ×3 (09:22→17:26)
[2019-03-10 16:15] VITALS: BP 103/67
[2019-03-10] MEDS: INSULIN GLARGINE 300 UNITS/3 ML INSULN.PEN. SQ SCH ×2 (21:00→21:34)
[2019-03-10] MEDS: QUEtiapine 25 MG TABLET. PO SCH (21:22)
[2019-03-10] MEDS: ATORVASTATIN CALCIUM 20 MG TABLET PO SCH (21:23)
[2019-03-10] MEDS: FLUTICASONE 50MCG/NASAL SPRAY 16GM BOTTLE. NS SCH (21:27)
--- NOTE | 2019-03-10 22:29 | PDOC ---
Exam Note: Ilir Note: Please also refer to the separate dictated note~for this date of service dictated separately.~Patient seen individually. Discussed the patient with Nursing staff reviewed the chart.~Reviewed interim history and current functioning. Reviewed vital signs,~Labs/ Radiology~and current medications noted below. Continue current treatment with the changes noted in the dictated addendum note Assessment: Vital Signs/I&O: Vital Signs Date Time Temp Pulse Resp B/P (MAP) Pulse Ox O2 Delivery O2 Flow Rate FiO2 03/10/19 17:25 80 103/67 03/10/19 16:15 97.3 18 99 03/09/19 05:58 Room Air I & O 03/09/19 03/09/19 03/10/19 15:00 23:00 07:00 Intake Total 720 ml 960 ml Balance 720 ml 960 ml Labs: Laboratory Tests Test 03/10/19 07:22 03/10/19 11:53 03/10/19 16:39 03/10/19 19:53 Glucose (Fingerstick) 143 mg/dL (70-99) H 173 mg/dL (70-99) H 353 mg/dL (70-99) H 244 mg/dL (70-99) H Current Medications: Meds: Current Medications Medications (Trade) Dose Ordered Sig/Yana Route PRN Reason Start Time Stop Time Status Last Admin Dose Admin Insulin Glargine (Lantus) 20 units QHS SQ 03/10/19 21:00 03/10/19 21:34 I have reviewed the current psychotropics carefully including drug interactions. Risk benefit ratio favors no change other than as noted in my dictated progress note. Diagnosis: Problems: (1) Anxiety disorder (2) Dementia in Alzheimer's disease with delusions (3) Dementia in Alzheimer's disease with depression (4) Dementia, vascular, with delusions (5) Dementia, vascular, with depression (6) Impulse control disorder ROSEMARY ZURITA MD Mar 10, 2019 22:29
--- NOTE | 2019-03-11 00:23 | PN ---
DATE: 03/08/2019 PSYCHIATRIC PROGRESS NOTE This late entry 03/08/2019 covers elements not covered in my initial note. SUBJECTIVE: I met with the patient in the evening. The patient slept 7 hours previous night. He is somewhat withdrawn, quiet, but not aggressive, and not sexually inappropriate. REVIEW OF SYSTEMS: Ambulation impaired with walker. No CV, , pulmonary, eye system symptoms on review. MENTAL STATUS EXAM: Oriented to himself and situation. Speech has some latency, low in rate and rhythm, low in volume, often responses monosyllabic. Abstraction fair, computation impaired, language function intact, attention span short. Mood and affect somewhat withdrawn. LABORATORY DATA: Reviewed. IMPRESSION: Unchanged from initial note. Slept 7 hours previous night. PLAN: No change from initial note. MAN Mallorie ZURITA MD DR: KOBY/candido JOB#: [id number] / [id number]
[2019-03-11] MEDS: MIDODRINE 5 MG TABLET PO SCH ×3 (06:15→17:52)
[2019-03-11 06:32] VITALS: BP 128/82
[2019-03-11] MEDS: INSULIN LISPRO 300 UNITS/3 ML INSULN.PEN. SQ SCH ×3 (08:00→17:38)
[2019-03-11 09:13] LABS: BASO % 0 % (0-3); EOS % 0 % (0-3); HEMATOCRIT 41.9 % (39.0-53.0); HEMOGLOBIN 13.8 g/dL (13.0-17.5); LYMPH # 1.4 x10^3/uL (1.0-4.8); LYMPH % 19 % (24-48); MEAN CORPUSCULAR HEMOGLOBIN 34 pg (25-35); MEAN CORPUSCULAR HGB CONC 33 g/dL (31-37); MEAN CORPUSCULAR VOLUME 104 fL (79-100); MONO # 0.9 x10^3/uL (0.0-1.1); MONO % 12 % (0-9); NEUT # 5.2 x10^3uL (1.8-7.7); NEUT % 69 % (31-73); PLATELET COUNT 189 x10^3/uL (140-400); RED BLOOD COUNT 4.04 x10^6/uL (4.30-5.70); RED CELL DISTRIBUTION WIDTH 14.5 % (11.5-14.5); WHITE BLOOD COUNT 7.6 x10^3/uL (4.0-11.0)
[2019-03-11 09:26] LABS: ALBUMIN 3.6 g/dL (3.4-5.0); CALCIUM 9.3 mg/dL (8.5-10.1); CREATININE 1.1 mg/dL (0.7-1.3); GFR 79.2; POTASSIUM 4.2 mmol/L (3.5-5.1); TOTAL BILIRUBIN 1.5 mg/dL (0.2-1.0); TOTAL PROTEIN 7.3 g/dL (6.4-8.2)
[2019-03-11] MEDS: MYCOPHENOLATE MOFETIL 500 MG TABLET. PO SCH ×2 (10:46→20:04)
[2019-03-11] MEDS: ASPIRIN ENTERIC COATED 81 MG TABLET.DR. PO SCH (10:47)
[2019-03-11] MEDS: rOPINIRole 1 MG TABLET. PO SCH ×3 (10:47→20:00)
[2019-03-11] MEDS: PANTOPRAZOLE 40 MG TABLET. PO SCH (10:47)
[2019-03-11] MEDS: CARBIDOPA/LEVODOPA 25/100MG TABLET PO SCH ×4 (10:47→20:00)
[2019-03-11] MEDS: ENTACAPONE 200 MG TABLET PO SCH ×4 (10:48→20:05)
[2019-03-11] MEDS: TETRAHYDROZOLINE 0.05% OPHTH SOLUTION 15ML BOTTLE. OU SCH ×2 (10:48→20:06)
[2019-03-11] MEDS: [UNRECOGNIZED DRUG - OTHER] PO SCH ×2 (10:48→20:04)
[2019-03-11] MEDS: SERTRALINE 25 MG TABLET. PO SCH (10:48)
[2019-03-11] MEDS: predniSONE 5 MG TABLET PO SCH (10:48)
[2019-03-11] MEDS: APIXABAN 5 MG TABLET. PO SCH ×2 (10:49→20:00)
[2019-03-11 16:18] VITALS: BP 137/88
[2019-03-11] MEDS: QUEtiapine 25 MG TABLET. PO SCH (20:00)
[2019-03-11] MEDS: ATORVASTATIN CALCIUM 20 MG TABLET PO SCH (20:00)
[2019-03-11] MEDS: FLUTICASONE 50MCG/NASAL SPRAY 16GM BOTTLE. NS SCH (20:06)
[2019-03-11] MEDS ORDERED: INSULIN LISPRO 300 UNITS/3 ML INSULN.PEN. SQ ONE (20:15)
[2019-03-11] MEDS: INSULIN GLARGINE 300 UNITS/3 ML INSULN.PEN. SQ SCH (20:21)
--- NOTE | 2019-03-11 22:20 | PDOC ---
Exam Note: Ilir Note: Please also refer to the separate dictated note~for this date of service dictated separately.~Patient seen individually. Discussed the patient with Nursing staff reviewed the chart.~Reviewed interim history and current functioning. Reviewed vital signs,~Labs/ Radiology~and current medications noted below. Continue current treatment with the changes noted in the dictated addendum note Assessment: Vital Signs/I&O: Vital Signs Date Time Temp Pulse Resp B/P (MAP) Pulse Ox O2 Delivery O2 Flow Rate FiO2 03/11/19 16:18 98.0 83 16 137/88 (104) 98 03/09/19 05:58 Room Air I & O 03/10/19 03/10/19 03/11/19 14:59 22:59 06:59 Intake Total 480 ml 840 ml Balance 480 ml 840 ml Labs: Laboratory Tests Test 03/11/19 07:42 03/11/19 09:05 03/11/19 12:06 03/11/19 16:38 Glucose (Fingerstick) 179 mg/dL (70-99) H 295 mg/dL (70-99) H 430 mg/dL (70-99) H White Blood Count 7.6 x10^3/uL (4.0-11.0) Red Blood Count 4.04 x10^6/uL (4.30-5.70) L Hemoglobin 13.8 g/dL (13.0-17.5) Hematocrit 41.9 % (39.0-53.0) Mean Corpuscular Volume 104 fL (79-100) H Mean Corpuscular Hemoglobin 34 pg (25-35) Mean Corpuscular Hemoglobin Concent 33 g/dL (31-37) Red Cell Distribution Width 14.5 % (11.5-14.5) Platelet Count 189 x10^3/uL (140-400) Neutrophils (%) (Auto) 69 % (31-73) Lymphocytes (%) (Auto) 19 % (24-48) L Monocytes (%) (Auto) 12 % (0-9) H Eosinophils (%) (Auto) 0 % (0-3) Basophils (%) (Auto) 0 % (0-3) Neutrophils # (Auto) 5.2 x10^3uL (1.8-7.7) Lymphocytes # (Auto) 1.4 x10^3/uL (1.0-4.8) Monocytes # (Auto) 0.9 x10^3/uL (0.0-1.1) Eosinophils # (Auto) 0.0 x10^3/uL (0.0-0.7) Basophils # (Auto) 0.0 x10^3/uL (0.0-0.2) Sodium Level 138 mmol/L (136-145) Potassium Level 4.2 mmol/L (3.5-5.1) Chloride Level 101 mmol/L (98-107) Carbon Dioxide Level 31 mmol/L (21-32) Anion Gap 6 (6-14) Blood Urea Nitrogen 19 mg/dL (8-26) Creatinine 1.1 mg/dL (0.7-1.3) Estimated GFR (Cockcroft-Gault) 79.2 BUN/Creatinine Ratio 17 (6-20) Glucose Level 249 mg/dL (70-99) H Calcium Level 9.3 mg/dL (8.5-10.1) Total Bilirubin 1.5 mg/dL (0.2-1.0) H Aspartate Amino Transferase (AST) 18 U/L (15-37) Alanine Aminotransferase (ALT) 14 U/L (16-63) L Alkaline Phosphatase 101 U/L (46-116) Total Protein 7.3 g/dL (6.4-8.2) Albumin 3.6 g/dL (3.4-5.0) Albumin/Globulin Ratio 1.0 (1.0-1.7) Test 03/11/19 19:41 Glucose (Fingerstick) 376 mg/dL (70-99) H Current Medications: Meds: Current Medications Medications (Trade) Dose Ordered Sig/Yana Route PRN Reason Start Time Stop Time Status Last Admin Dose Admin Insulin Human Lispro (HumaLOG) 10 units 1X ONCE SQ 03/11/19 20:15 03/11/19 20:21 DC 03/11/19 20:23 I have reviewed the current psychotropics carefully including drug interactions. Risk benefit ratio favors no change other than as noted in my dictated progress note. Diagnosis: Problems: (1) Anxiety disorder (2) Dementia in Alzheimer's disease with delusions (3) Dementia in Alzheimer's disease with depression (4) Dementia, vascular, with delusions (5) Dementia, vascular, with depression (6) Impulse control disorder ROSEMARY ZURITA MD Mar 11, 2019 22:20
[2019-03-11 22:45] VITALS: BP 133/73
--- NOTE | 2019-03-12 00:29 | PN ---
DATE: 03/10/2019 PSYCHIATRIC PROGRESS NOTE This late entry, 03/10, covers elements not covered in my initial note. SUBJECTIVE: I met with the patient in the evening. Overall, per nursing report, the patient has been fairly cooperative on the unit, slept 6 hours previous night. Daughter visited at lunchtime. Affect is somewhat flat. Compliant with medications. REVIEW OF SYSTEMS: Ambulation impaired with walker. No CV, , pulmonary, eye system symptoms on review, slightly hard of hearing. MENTAL STATUS EXAM: Oriented to himself and situation. Speech has some latency, low in volume, typical for him. Abstraction fair, computation impaired, language function intact. Short term memory is impaired. Mood and affect is improved despite the above. No suicidal or homicidal ideation. No aggression. LABORATORY DATA: Reviewed. IMPRESSION: Unchanged from initial note. PLAN: No change from initial note. MAN Mallorie ZURITA MD DR: KOBY/candido JOB#: [id number] / [id number]
--- NOTE | 2019-03-12 05:47 | PN ---
DATE: 03/09/2019 PSYCHIATRIC PROGRESS NOTE This late entry 03/09/2019 covers elements not covered in my initial note. SUBJECTIVE: I met with the patient in the evening. The patient slept 5-1/4 hours previous night. He has been fairly appropriate on the unit, somewhat withdrawn. REVIEW OF SYSTEMS: Ambulation impaired with walker, hard of hearing. No CV, , pulmonary, eye system symptoms on review. MENTAL STATUS EXAM: Oriented to himself and situation. Speech has some latency, low in volume, coherent, abstraction fair, computation impaired, language function intact, attention span short. Mood and affect still withdrawn, depressed, but improved. No suicidal or homicidal ideation and he has not been aggressive. LABORATORY DATA: Reviewed. IMPRESSION: Unchanged from my initial note. PLAN: No change from initial note. MAN Mallorie ZURITA MD DR: KOBY/candido JOB#: [id number] / [id number]
[2019-03-12 05:48] LABS: BACTERIA,URINE 0 /HPF (0-FEW); BILIRUBIN,URINE NEG (NEG); CLARITY,URINE CLEAR; COLOR,URINE STRAW; GLUCOSE,URINE NEG (NEG); NITRITE,URINE NEG (NEG); RBC,URINE 0 /HPF (0-2); SQUAMOUS EPITHELIAL CELL,UR FEW /LPF; UROBILINOGEN,URINE 1 mg/dL (0.2 mg/dL); WBC,URINE OCC /HPF (0-4)
[2019-03-12] MEDS: MIDODRINE 5 MG TABLET PO SCH ×3 (06:02→18:14)
[2019-03-12 06:43] VITALS: BP 111/72
[2019-03-12] MEDS: ENTACAPONE 200 MG TABLET PO SCH ×4 (08:17→20:57)
[2019-03-12] MEDS: ASPIRIN ENTERIC COATED 81 MG TABLET.DR. PO SCH (08:17)
[2019-03-12] MEDS: [UNRECOGNIZED DRUG - OTHER] PO SCH ×2 (08:18→20:58)
[2019-03-12] MEDS: APIXABAN 5 MG TABLET. PO SCH ×2 (08:18→20:56)
[2019-03-12] MEDS: MYCOPHENOLATE MOFETIL 500 MG TABLET. PO SCH ×2 (08:18→20:58)
[2019-03-12] MEDS: PANTOPRAZOLE 40 MG TABLET. PO SCH (08:18)
[2019-03-12] MEDS: CARBIDOPA/LEVODOPA 25/100MG TABLET PO SCH ×4 (08:18→20:57)
[2019-03-12] MEDS: SERTRALINE 25 MG TABLET. PO SCH (08:18)
[2019-03-12] MEDS: predniSONE 5 MG TABLET PO SCH (08:19)
[2019-03-12] MEDS: INSULIN LISPRO 300 UNITS/3 ML INSULN.PEN. SQ SCH ×3 (08:22→16:56)
[2019-03-12] MEDS: TETRAHYDROZOLINE 0.05% OPHTH SOLUTION 15ML BOTTLE. OU SCH ×2 (08:24→20:56)
[2019-03-12] MEDS: rOPINIRole 1 MG TABLET. PO SCH ×3 (08:29→20:56)
[2019-03-12 15:57] VITALS: BP 107/70
[2019-03-12] MEDS: ATORVASTATIN CALCIUM 20 MG TABLET PO SCH (20:56)
[2019-03-12] MEDS: QUEtiapine 25 MG TABLET. PO SCH (20:56)
[2019-03-12] MEDS: FLUTICASONE 50MCG/NASAL SPRAY 16GM BOTTLE. NS SCH (20:56)
[2019-03-12] MEDS: INSULIN GLARGINE 300 UNITS/3 ML INSULN.PEN. SQ SCH (21:00)
--- NOTE | 2019-03-12 22:22 | PDOC ---
Exam Note: Ilir Note: Please also refer to the separate dictated note~for this date of service dictated separately.~Patient seen individually. Discussed the patient with Nursing staff reviewed the chart.~Reviewed interim history and current functioning. Reviewed vital signs,~Labs/ Radiology~and current medications noted below. Continue current treatment with the changes noted in the dictated addendum note Assessment: Vital Signs/I&O: Vital Signs Date Time Temp Pulse Resp B/P (MAP) Pulse Ox O2 Delivery O2 Flow Rate FiO2 03/12/19 18:14 70 107/70 03/12/19 15:57 98.2 17 97 03/11/19 22:45 Room Air I & O 03/11/19 03/11/19 03/12/19 15:00 23:00 07:00 Intake Total 840 ml 240 ml 240 ml Balance 840 ml 240 ml 240 ml Labs: Laboratory Tests Test 03/12/19 05:30 03/12/19 07:35 03/12/19 12:03 03/12/19 16:24 Urine Collection Type Unknown Urine Color Straw Urine Clarity Clear Urine pH 6.0 Urine Specific [place] 1.020 Urine Protein Neg (NEG-TRACE) Urine Glucose (UA) Neg mg/dL (NEG) Urine Ketones (Stick) Trace mg/dL (NEG) Urine Blood Neg (NEG) Urine Nitrite Neg (NEG) Urine Bilirubin Neg (NEG) Urine Urobilinogen Dipstick 1 mg/dL (0.2 mg/dL) Urine Leukocyte Esterase Neg (NEG) Urine RBC 0 /HPF (0-2) Urine WBC Occ /HPF (0-4) Urine Squamous Epithelial Cells Few /LPF Urine Bacteria 0 /HPF (0-FEW) Glucose (Fingerstick) 123 mg/dL (70-99) H 146 mg/dL (70-99) H 67 mg/dL (70-99) L Test 03/12/19 19:16 Glucose (Fingerstick) 187 mg/dL (70-99) H Current Medications: I have reviewed the current psychotropics carefully including drug interactions. Risk benefit ratio favors no change other than as noted in my dictated progress note. Diagnosis: Problems: (1) Major neurocognitive disorder (2) Anxiety disorder (3) Dementia in Alzheimer's disease with delusions (4) Dementia in Alzheimer's disease with depression (5) Dementia, vascular, with delusions (6) Dementia, vascular, with depression (7) Impulse control disorder ROSEMARY ZURITA MD Mar 12, 2019 22:22
--- NOTE | 2019-03-13 00:35 | PN ---
DATE: 03/11/2019 PSYCHIATRIC PROGRESS NOTE This i late entry 03/11/2019 covers elements not covered in my initial note. SUBJECTIVE: I met with the patient in the evening of 03/11/2019. The patient slept 6-3/4 hours previous night. He remains flat, somewhat withdrawn, spends time in the day room, does not interact very much. REVIEW OF SYSTEMS: Ambulation impaired with walker. No CV, , pulmonary, eye, ENT system symptoms on review. Reliability poor. MENTAL STATUS EXAM: Oriented to himself and situation. Insight, judgment, recent memory is impaired. Language function intact. Attention span short. Mood and affect withdrawn. LABORATORY DATA: Reviewed. IMPRESSION: Unchanged from initial note. PLAN: No change from initial note. MAN Mallorie ZURITA MD DR: KOBY/candido JOB#: [id number] / [id number]
[2019-03-13] MEDS ORDERED: CARB1TAB2 PO (00:58)
[2019-03-13] MEDS ORDERED: CHOL500021 PO (01:05)
[2019-03-13] MEDS ORDERED: ACET325T9 PO (01:05)
[2019-03-13] MEDS ORDERED: MAG30ORA2 PO (01:06)
[2019-03-13] MEDS ORDERED: MAGN2400 PO (01:06)
[2019-03-13] MEDS ORDERED: OLAN5TAB5 PO (01:07)
[2019-03-13] MEDS ORDERED: METH29OI TP (01:07)
[2019-03-13] MEDS ORDERED: SERT25TA4 PO (01:08)
[2019-03-13] MEDS: MIDODRINE 5 MG TABLET PO SCH (06:08)
[2019-03-13 06:20] VITALS: BP 113/72
[2019-03-13] MEDS: INSULIN LISPRO 300 UNITS/3 ML INSULN.PEN. SQ SCH (08:08)
[2019-03-13] MEDS: rOPINIRole 1 MG TABLET. PO SCH (09:28)
[2019-03-13] MEDS: [UNRECOGNIZED DRUG - OTHER] PO SCH (09:29)
[2019-03-13] MEDS: PANTOPRAZOLE 40 MG TABLET. PO SCH (09:29)
[2019-03-13] MEDS: ENTACAPONE 200 MG TABLET PO SCH (09:29)
[2019-03-13] MEDS: CARBIDOPA/LEVODOPA 25/100MG TABLET PO SCH (09:29)
[2019-03-13] MEDS: MYCOPHENOLATE MOFETIL 500 MG TABLET. PO SCH (09:29)
[2019-03-13] MEDS: APIXABAN 5 MG TABLET. PO SCH (09:29)
[2019-03-13] MEDS: SERTRALINE 25 MG TABLET. PO SCH (09:29)
[2019-03-13] MEDS: TETRAHYDROZOLINE 0.05% OPHTH SOLUTION 15ML BOTTLE. OU SCH (09:29)
[2019-03-13] MEDS: ASPIRIN ENTERIC COATED 81 MG TABLET.DR. PO SCH (09:29)
[2019-03-13] MEDS: predniSONE 5 MG TABLET PO SCH (09:29)
--- NOTE | 2019-03-13 22:33 | PDOC ---
Exam Note: Ilir Note: Please also refer to the separate dictated note~for this date of service dictated separately.~Patient seen individually. Discussed the patient with Nursing staff reviewed the chart.~Reviewed interim history and current functioning. Reviewed vital signs,~Labs/ Radiology~and current medications noted below. Continue current treatment with the changes noted in the dictated addendum note Assessment: Vital Signs/I&O: Vital Signs Date Time Temp Pulse Resp B/P (MAP) Pulse Ox O2 Delivery O2 Flow Rate FiO2 03/13/19 06:20 98.2 88 18 113/72 (86) 95 Room Air I & O 03/12/19 03/12/19 03/13/19 15:00 23:00 07:00 Intake Total 720 ml 360 ml Balance 720 ml 360 ml Labs: Laboratory Tests Test 03/13/19 08:05 03/13/19 09:07 Glucose (Fingerstick) 35 mg/dL (70-99) *L 87 mg/dL (70-99) Current Medications: I have reviewed the current psychotropics carefully including drug interactions. Risk benefit ratio favors no change other than as noted in my dictated progress note. Diagnosis: Problems: (1) Major neurocognitive disorder (2) Dementia with behavioral disturbance (3) Anxiety disorder (4) Dementia in Alzheimer's disease with delusions (5) Dementia in Alzheimer's disease with depression (6) Dementia, vascular, with delusions (7) Dementia, vascular, with depression (8) Impulse control disorder ROSEMARY ZURITA MD Mar 13, 2019 22:33
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
--- NOTE | 2019-03-14 20:58 | PN ---
DATE: 03/12/2019 PSYCHIATRIC PROGRESS NOTE This is a late entry 03/12/2019, covers the elements not covered in my initial note. SUBJECTIVE: I met with the patient in the evening of 03/12/2019. The patient slept 5-1/4 hours previous night. He had a fall the previous night, forgot to use the walker. No injuries noted. UA has completed. Insulin adjusted per Dr. Hermosillo. REVIEW OF SYSTEMS: Ambulation impaired with walker. No CV, , pulmonary, eye, ENT system symptoms on review. Reliability is poor. MENTAL STATUS EXAM: Oriented to himself at times situation. Speech has some latency, coherent, often responses monosyllabic. Abstraction fair, computation impaired, language function intact. Mood and affect somewhat withdrawn. LABORATORY DATA: Reviewed. IMPRESSION: Unchanged from initial note. PLAN: No change from initial note, if possible discharge on 03/13/2019. MAN Mallorie ZURIAT MD DR: KOBY/candido JOB#: [id number] / [id number]
== END 2019-03-13 11:10 | disposition home health service (06) | DRG 57 ==
LOC: GEROPSY 07:19
PROVIDERS: ADMIT Psychiatry & Neurology Psychiatry; ATTEND Psychiatry & Neurology Psychiatry
DX: G30.9 Alzheimer's disease, unspecified (principal); F01.51 Vascular dementia, unspecified severity, with behavioral disturbance; F02.81 Dementia in other diseases classified elsewhere, unspecified severity, with behavioral disturbance; F32.9 Major depressive disorder, single episode, unspecified; Z88.8 Allergy status to other drugs, medicaments and biological substances; E11.22 Type 2 diabetes mellitus with diabetic chronic kidney disease; E78.5 Hyperlipidemia, unspecified; F41.9 Anxiety disorder, unspecified; F63.9 Impulse disorder, unspecified; G20 Parkinson's disease; G47.33 Obstructive sleep apnea (adult) (pediatric); I12.9 Hypertensive chronic kidney disease with stage 1 through stage 4 chronic kidney disease, or unspecified chronic kidney disease; K74.60 Unspecified cirrhosis of liver; N18.9 Chronic kidney disease, unspecified; Z51.5 Encounter for palliative care; Z79.01 Long term (current) use of anticoagulants; Z79.899 Other long term (current) drug therapy; Z85.46 Personal history of malignant neoplasm of prostate; Z86.711 Personal history of pulmonary embolism; Z86.718 Personal history of other venous thrombosis and embolism; Z90.79 Acquired absence of other genital organ(s); Z91.81 History of falling; Z95.0 Presence of cardiac pacemaker
CPT/HCPCS: 36415; 70450; 80053; 80061; 81001; 82306; 82947; 83036; 83540; 83550; 83735; 84436; 84439; 84443; 84480; 85025; 86592; 94640; J1644; J1815; J7512; J7515; J7517; J7626